=== PATIENT | female | born 1990 | race African-American/Black ===

== ENCOUNTER 2017-04-19 18:41 | Emergency (ER) | payer OTHER ==
[2017-04-19 18:48] VITALS: BP 175/108; BMI 23.6
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
--- NOTE | 2017-04-19 19:47 | CT ---
HISTORY: Neck & C-spine pain Study: CT cervical spine without contrast Comparison: None Technique: Multiple axial images of the cervical spine were obtained from the skull base to the thora cic inlet without administration of IV contrast. Sagittal and coronal reformats were performed and r eviewed. Findings: Alignment of the cervical spine is maintained. No evidence for acute fracture, compression deformity , or subluxation can be seen. The central canal remains free of compromise from bony fragments or si gnificant soft tissue encroachment. The posterior elements appear unremarkable. The prevertebral so ft tissues are normal in their appearance. In addition, the surrounding paraspinous soft tissues are unremarkable IMPRESSION: 1. NEGATIVE C-SPINE CT EXAM. Reported By:
--- NOTE | 2017-04-19 20:00 | RAD ---
HISTORY: Knee Pain. Study: Complete three-view series left knee Comparison: None available. Findings: No acute fracture, subluxation, or dislocation is identified. The medial and lateral tibiofemoral co mpartments appear unremarkable without loss of significant joint space. The lateral radiograph fails to demonstrate a visible joint effusion. Patellofemoral compartment is unremarkable in appearance. No lytic or bone forming lesions are seen. No high-grade osteochondral defects are observed. No unexp ected radiopaque foreign bodies are seen. There is no evidence for significant degenerative arthrosis . No focal joint erosions are seen, either. IMPRESSION: Prepatellar edema without evidence for acute fracture or significant joint effusion. Reported By:
--- NOTE | 2017-04-19 20:01 | RAD ---
HISTORY: Shoulder pain. Study: Complete three-view series of the left shoulder. Comparison: None. Findings: The appearance of the clavicle and AC joint are unremarkable. The glenohumeral articulation is poornima l in its appearance. No acute humeral fracture, Hill-Sachs deformity, subluxation, or dislocation ca n be identified. The visualized portions of the scapula are unremarkable. In addition, the visualiz ed portions of the hemithorax appear clear. IMPRESSION: 1. Negative left shoulder joint exam. Reported By:
[2017-04-19] MEDS: TORADOL 60 MG VIAL IM ONE (20:22)
[2017-04-19] MEDS ORDERED: NORFLEX INJ ONE (20:24)
[2017-04-19] MEDS ORDERED: TORADOL 60 MG VIAL ONE (20:24)
[2017-04-19] MEDS: NORFLEX INJ IM ONE (20:25)
== END 2017-04-19 21:53 | disposition home or self-care (01) ==
LOC: ER 18:41
DX: Z04.3 Encounter for examination and observation following other accident (principal); S80.02XA Contusion of left knee, initial encounter; V49.9XXA Car occupant (driver) (passenger) injured in unspecified traffic accident, initial encounter
CPT/HCPCS: 29530; 70450; 72125; 72131; 73030; 73564; 96372; 99282; 99283; J1885; J2360